=== PATIENT | male | born 1985 | race Caucasian/White ===

== ENCOUNTER 2018-02-12 19:37 | Emergency (ER) | payer SELFPAY ==
[~2018-02-12] VITALS: Ht 175.3 cm; Wt 81.6 kg
--- NOTE | 2018-02-12 21:01 | PHYS DOC ---
Adult General Chief Complaint Chief Complaint: FLANK PAIN HPI HPI 32-year-old male presents with right flank pain. The patient was diagnosed weeks ago with multiple kidney stones. The largest is reportedly 3.2 mm. He passed one stone a week ago. Today the patient has had increasing pain in the right flank and decreased urination. He states that it is difficult to urinate and he has a low below. He is unable to ejaculate. He denies fever or chills. He does have dysuria, but no urinary frequency. Review of Systems Review of Systems Constitutional: Denies fever or chills [] Eyes: Denies change in visual acuity, redness, or eye pain [] HENT: Denies nasal congestion or sore throat [] Respiratory: Denies cough or shortness of breath [] Cardiovascular: No additional information not addressed in HPI [] GI: Right flank pain[] : Denies dysuria or hematuria [] Musculoskeletal: Denies back pain or joint pain [] Integument: Denies rash or skin lesions [] Neurologic: Denies headache, focal weakness or sensory changes [] Endocrine: Denies polyuria or polydipsia [] All other systems were reviewed and found to be within normal limits, except as documented in this note. Physical Exam Physical Exam Constitutional: Well developed, well nourished, no acute distress, non-toxic appearance. [] HENT: Normocephalic, atraumatic, bilateral external ears normal, oropharynx moist, no oral exudates, nose normal. [] Eyes: PERRLA, EOMI, conjunctiva normal, no discharge. [] Neck: Normal range of motion, no tenderness, supple, no stridor. [] Cardiovascular:Heart rate regular rhythm, no murmur [] Lungs & Thorax: Bilateral breath sounds clear to auscultation [] Abdomen: Bowel sounds normal, soft, no tenderness, no masses, no pulsatile masses. [] Skin: Warm, dry, no erythema, no rash. [] Back: Right sided CVA tenderness. [] Extremities: No tenderness, no cyanosis, no clubbing, ROM intact, no edema. [] Neurologic: Alert and oriented X 3, normal motor function, normal sensory function, no focal deficits noted. [] Psychologic: Affect normal, judgement normal, mood normal. [] EKG EKG [] Radiology/Procedures Radiology/Procedures [] Impressions: PQRS Compliance statement: One or more of the following individualized dose reduction techniques were utilized for this examination: 1. Automated exposure control. 2. Adjustment of the mA and/or kV according to patient size. 3. Use of iterative reconstruction technique. Indication:RIGHT FLANK PAIN, PELVIC PAIN, HX KIDNEY STONES
TECHNIQUE: CT abdomen and pelvis without IV contrast with multiplanar reformats. COMPARISON: None FINDINGS: Limited evaluation of solid abdominal and pelvic organs due to lack of IV contrast. Heart is normal in size. No pericardial or pleural effusion. Clear lung bases. Noncontrast appearance of the liver, spleen, gallbladder, pancreas, adrenals within normal limits. 4 mm stone is seen at the right UVJ causing moderate right hydroureteronephrosis. Left kidney demonstrates no hydronephrosis. No free pelvic fluid or ascites. No enlarged retroperitoneal or pelvic adenopathy. No bowel obstruction. Normal appendix. Urinary bladder within normal limits. The prostate and seminal vesicles show no large mass. No suspicious bony lesion. IMPRESSION: Obstructing 4 mm stone in the right UVJ causing mild to moderate right hydroureteronephrosis. Electronically signed by: Elder Malik DO (02/12/2018 9:33 PM) [facility] DICTATED AND SIGNED BY: ELDER MALIK DO DATE: 02/12/182129 CC: REGINE PATTEN DO; PCP,LIDIA Course & Med Decision Making Course & Med Decision Making Pertinent Labs and Imaging studies reviewed. (See chart for details) The patient's CT is significant for an obstructing stone at the right UVJ with hydronephrosis. He is requiring Dilaudid pain medication to keep him comfortable. He is still quite painful when he urinates even a small amount. I discussed the case with the urologist, Dr. Suarez and he agrees the patient can be transferred to [place] for pain management and likely a stone removal procedure tomorrow. Patient is in agreement with this plan. I spoke with the hospitalist, Dr. Wyatt and she has accepted the patient for transfer and admission. [] Dragon Disclaimer Dragon Disclaimer This electronic medical record was generated, in whole or in part, using a voice recognition dictation system. Departure Departure: Referrals: PCP,LIDIA (PCP) REGINE PATTEN DO Feb 12, 2018 21:01
[2018-02-12] MEDS ORDERED: ONDANSETRON PF 4 MG/2 ML VIAL. IV ONE (21:30)
[2018-02-12] MEDS ORDERED: KETOROLAC 30 MG/ML VIAL. IV ONE (21:30)
[2018-02-12] MEDS ORDERED: IV NORMAL SALINE 1,000ML 1,000 ML IV SCH (21:30)
--- NOTE | 2018-02-12 21:36 | RAD ---
PQRS Compliance statement: One or more of the following individualized dose reduction techniques were utilized for this examination: 1. Automated exposure control. 2. Adjustment of the mA and/or kV according to patient size. 3. Use of iterative reconstruction technique. Indication:RIGHT FLANK PAIN, PELVIC PAIN, HX KIDNEY STONES
TECHNIQUE: CT abdomen and pelvis without IV contrast with multiplanar reformats. COMPARISON: None FINDINGS: Limited evaluation of solid abdominal and pelvic organs due to lack of IV contrast. Heart is normal in size. No pericardial or pleural effusion. Clear lung bases. Noncontrast appearance of the liver, spleen, gallbladder, pancreas, adrenals within normal limits. 4 mm stone is seen at the right UVJ causing moderate right hydroureteronephrosis. Left kidney demonstrates no hydronephrosis. No free pelvic fluid or ascites. No enlarged retroperitoneal or pelvic adenopathy. No bowel obstruction. Normal appendix. Urinary bladder within normal limits. The prostate and seminal vesicles show no large mass. No suspicious bony lesion. IMPRESSION: Obstructing 4 mm stone in the right UVJ causing mild to moderate right hydroureteronephrosis. Electronically signed by: Elder Malik DO (02/12/2018 9:33 PM) [facility]
[2018-02-12 21:46] LABS: BASO # 0.1 x10^3/uL (0.0-0.2); BASO % 0 % (0-3); EOS % 0 % (0-3); HEMATOCRIT 44.9 % (39.0-53.0); HEMOGLOBIN 15.5 g/dL (13.0-17.5); LYMPH # 2.2 x10^3/uL (1.0-4.8); LYMPH % 17 % (24-48); MEAN CORPUSCULAR HEMOGLOBIN 29 pg (25-35); MEAN CORPUSCULAR HGB CONC 35 g/dL (31-37); MEAN CORPUSCULAR VOLUME 84 fL (79-100); MONO # 0.8 x10^3/uL (0.0-1.1); MONO % 6 % (0-9); NEUT # 9.7 x10^3uL (1.8-7.7); NEUT % 76 % (31-73); PLATELET COUNT 250 x10^3/uL (140-400); RED BLOOD COUNT 5.35 x10^6/uL (4.30-5.70); RED CELL DISTRIBUTION WIDTH 13.2 % (11.5-14.5); WHITE BLOOD COUNT 12.8 x10^3/uL (4.0-11.0)
[2018-02-12 21:54] LABS: ALBUMIN 4.2 g/dL (3.4-5.0); ALBUMIN/GLOBULIN RATIO 1.3 (1.0-1.7); CALCIUM 9.4 mg/dL (8.5-10.1); CREATININE 1.6 mg/dL (0.7-1.3); GFR 50.3; POTASSIUM 4.1 mmol/L (3.5-5.1); TOTAL BILIRUBIN 0.6 mg/dL (0.2-1.0); TOTAL PROTEIN 7.4 g/dL (6.4-8.2)
[2018-02-12] MEDS ORDERED: HYDROmorphone PF 1 MG/ML DISP.SYRIN IV ONE (22:15)
[2018-02-12 22:26] LABS: BACTERIA,URINE 0 /HPF (0-FEW); BILIRUBIN,URINE NEG (NEG); CLARITY,URINE CLEAR; COLOR,URINE YELLOW; GLUCOSE,URINE NEG (NEG); NITRITE,URINE NEG (NEG); SQUAMOUS EPITHELIAL CELL,UR FEW /LPF; UROBILINOGEN,URINE 0.2 mg/dL (0.2 mg/dL)
[2018-02-12 22:27] LABS: AMORPHOUS SEDIMENT,UR PRESENT /HPF
[2018-02-13] MEDS ORDERED: HYDROmorphone PF 1 MG/ML DISP.SYRIN IV ONE
[2018-02-13 00:49] VITALS: BP 139/82
== END 2018-02-13 01:17 | disposition short-term general hospital (02) ==
LOC: ER 19:37
DX: N13.2 Hydronephrosis with renal and ureteral calculous obstruction (principal)
CPT/HCPCS: 36415; 74176; 80053; 81001; 85025; 87086; 96374; 96375; 96376; 99285; J1170; J1885; J2405; J7030

== ENCOUNTER 2020-03-30 21:46 | Emergency (ER) | payer SELFPAY ==
[~2020-03-30] VITALS: Ht 175.3 cm; Wt 72.7 kg
--- NOTE | 2020-03-30 22:05 | PHYS DOC ---
Past History Past Medical History: Kidney Stones Alcohol Use: None Drug Use: None General Adult HPI: HPI: ".. I am sick like when I got a kidney stone.. but it hurts more up front.... maybe it is not a kidney stone.. I ve been vomiting the last two days..." Patient is a 34 year old male who presents with above hx and complaints nausea, vomiting, and some bilateral flank pain. Patient denies any intake of bad food. No history of trauma. No history of specific ill contacts. No history immunosuppression. Patient does not follow-up with primary care. Patient does have some bilateral flank pain but no localizations with caution. Does have rebound pain and right upper abdomen area. No recent travel outside the [place] area. Review of Systems: Review of Systems: Constitutional: Denies fever or chills Eyes: Denies change in visual acuity HENT: Denies nasal congestion or sore throat Respiratory: Denies cough or shortness of breath Cardiovascular: Denies chest pain or edema GI: Complains of abdominal pain, nausea, vomiting. Denies, bloody stools or diarrhea : Denies dysuria Musculoskeletal: Some complaints of bilateral flank pain Integument: Denies rash Neurologic: Denies headache, focal weakness or sensory changes Endocrine: Denies polyuria or polydipsia Lymphatic: Denies swollen glands Psychiatric: Denies depression or anxiety Family History: Family History: Noncontributory to presentation Current Medications: Current Meds: See nursing for home meds Allergies: Allergies: Allergies Coded Allergies Type Severity Reaction Last Updated Verified No Known Drug Allergies 02/12/18 No Physical Exam: PE: Constitutional: Well developed, well nourished, moderate distress, non-toxic appearance. [] HENT: Normocephalic, atraumatic, bilateral external ears normal, oropharynx dry, no oral exudates, nose normal. [] Eyes: PERRLA, EOMI, conjunctiva normal, no discharge. [] Neck: Normal range of motion, no tenderness, supple, no stridor. [] Cardiovascular: Tachycardia heart rate regular rhythm, no murmur [] Lungs & Thorax: Bilateral breath sounds equal apex on auscultation [] Abdomen: Bowel sounds hyperactive soft, epigastric and right upper quadrant tenderness, no masses, no pulsatile masses. Rebound pain to right upper quadrant. Pt. denies tarry stools. Declines rectal exam. Skin: Warm, dry, no erythema, no rash. [] Back: No tenderness, minimal bilateral CVA tenderness. [] Extremities: No tenderness, no cyanosis, no clubbing, ROM intact, no edema. No psoas sign. Neurologic: Alert and oriented X 3, normal motor function, normal sensory function, no focal deficits noted. [] Psychologic: Affect anxious , judgement normal, mood normal. [] EKG: EKG: [] Radiology/Procedures: Radiology/Procedures: [address] [address] IMAGING REPORT Signed PATIENT: ROGELIO HAMILTON ACCOUNT: [id number] : 1985 LOCATION: ER AGE: 34 SEX: M EXAM STATUS: REG ER ORD. PHYSICIAN: DOROTHY MENDEZ MD REASON: Mid abdomen pain, nausea vomiting Omni 300 75cc PROCEDURE: CT ABD PELV W/ORAL&IV CONTRAST CT ABD PELV W/ORAL IV CONTRAST History: Reason: Mid abdomen pain, nausea vomiting Omni 300 75cc / Spl. Instructions: / History: Technique: After the administration of intravenous contrast, CT imaging was performed of the abdomen and pelvis. Multiplanar images are reviewed. Exposure: One or more of the following individualized dose reduction techniques were utilized for this examination: 1. Automated exposure control 2. Adjustment of the mA and/or kV according to patient size 3. Use of iterative reconstruction technique. Comparison: February 12, 2018 Findings: Lower chest: No consolidation or pleural effusion. Abdomen and pelvis: The liver, spleen, pancreas and gallbladder are unremarkable. Bilateral adenomatous adrenal gland thickening, unchanged. No discrete nodule. Normal appearance of the kidneys. No hydronephrosis. Decompressed urinary bladder. Normal appendix. No evidence of bowel obstruction. Oral contrast opacifies to the level of the colon. No pathologic lymphadenopathy. No ascites. Bones: No pathologic osseous lesions. Impression: 1. No acute abdominal or pelvic pathology. Electronically signed by: Jamie Sheets DO (03/31/2020 12:54 AM) [facility] DICTATED AND SIGNED BY: JAMIE SHEETS DO DATE: 03/31/20 0054 CC: DOROTHY MENDEZ MD; PCP,NO ~MTH0 0 [][address] [address] IMAGING REPORT Signed PATIENT: ROGELIO HAMILTON ACCOUNT: [id number] : 1985 LOCATION: ER AGE: 34 SEX: M EXAM STATUS: REG ER ORD. PHYSICIAN: DOROTHY MENDEZ MD REASON: Mid abdomen pain, nausea and vomiting PROCEDURE: ACUTE ABDOMEN SERIES Exam: Acute abdominal series INDICATION: Mid abdominal pain, nausea and vomiting TECHNIQUE: Frontal view of the chest with upright and supine views of the abdomen Comparisons: None FINDINGS: The cardiomediastinal silhouette and pulmonary vessels are within normal limits. The lung and pleural spaces are clear. There is a focally air-filled dilated loop of small bowel in the left hemiabdomen. No suspicious masses or calcifications. Visualized osseous structures are unremarkable. IMPRESSION: 1. Focally air-filled dilated loops of small bowel in the left hemiabdomen which is nonspecific however could relate to sentinel loop suggesting underlying inflammatory process. Recommend CT for further evaluation. 2. No acute cardiopulmonary process. Electronically signed by: David Kessler MD (03/30/2020 10:46 PM) [facility] DICTATED AND SIGNED BY: DAVID KESSLER MD DATE: 03/30/202245 CC: DOROTHY MENDEZ MD; PCP,NO ~MTH0 0 Heart Score: HEART Score for Chest Pain: HEART Score for Chest Pain Response (Comments) Value History Slighlty/Non-Suspicious 0 ECG Normal 0 Age < 45 0 Risk Factors No Risk Factors 0 Troponin < Normal Limit 0 Total 0 Risk Factors: Risk Factors: DM, Current or recent (<one month) smoker, HTN, HLP, family history of CAD, obesity. Risk Scores: Score 0 - 3: 2.5% MACE over next 6 weeks - Discharge Home Score 4 - 6: 20.3% MACE over next 6 weeks - Admit for Clinical Observation Score 7 - 10: 72.7% MACE over next 6 weeks - Early Invasive Strategies Course & Med Decision Making: Course & Med Decision Making Pertinent Labs and Imaging studies reviewed. (See chart for details) Pt. reports marked improvement after meds and hydration. Patient stay on a clear fluid diet only for the next 48 hours. Take Tylenol and ibuprofen for pain. Marked pain may take Vicoprofen. Take Pepcid 20 mg twice a day. Follow-up primary care. Wear a mask that covers his nose and mouth at all times when outside his home. Take Zofran 8 up 4 x day for active nausea and vomiting. Impression: 1. Nausea and vomiting 2. Abdomen pain 3. Dehydration 4. Hypokalemia- mild 3.3 5. Viral Syndrome. 6. Gastritis [] Dragon Disclaimer: Heena Disclaimer: This electronic medical record was generated, in whole or in part, using a voice recognition dictation system. Departure Departure: Referrals: PCP,NO (PCP) Scripts Hydrocodone/Ibuprofen (HYDROCODONE-IBUPROFEN 7.5-200 ) 1 Each Tablet 1 TAB PO PRN Q6HRS PRN for PAIN, #30 TAB 0 Refills Prov: DOROTHY MENDEZ MD 03/31/20 Famotidine (PEPCID) 20 Mg Tablet 1 TAB PO BID for gastritis, #60 TAB 3 Refills Prov: DOROTHY MENDEZ MD 03/31/20 Ondansetron Hcl (ZOFRAN) 4 Mg Tablet 8 MG PO QIDPRN PRN for NAUSEA/VOMITING, #30 TAB Prov: DOROTHY MENDEZ MD 03/31/20 DOROTHY MENDEZ MD Mar 30, 2020 22:05
[2020-03-30] MEDS: IV RINGERS SOLUTION,LACTATED 1,000 ML IV SCH (22:20)
[2020-03-30] MEDS: KETOROLAC 60 MG/2 ML VIAL. IM ONE (22:20)
[2020-03-30] MEDS: FAMOTIDINE 20 MG/2 ML VIAL IVP ONE (22:20)
[2020-03-30 22:22] LABS: CALCIUM 9.8 mg/dL (8.5-10.1); CREATININE 1.1 mg/dL (0.7-1.3); GFR 76.6; POTASSIUM 3.3 mmol/L (3.5-5.1)
[2020-03-30 22:24] LABS: BASO % 0 % (0-3); EOS % 0 % (0-3); HEMATOCRIT 51.2 % (39.0-53.0); HEMOGLOBIN 17.3 g/dL (13.0-17.5); LYMPH # 2.1 x10^3/uL (1.0-4.8); LYMPH % 17 % (24-48); MEAN CORPUSCULAR HEMOGLOBIN 28 pg (25-35); MEAN CORPUSCULAR HGB CONC 34 g/dL (31-37); MEAN CORPUSCULAR VOLUME 84 fL (79-100); MONO # 0.8 x10^3/uL (0.0-1.1); MONO % 7 % (0-9); NEUT # 9.5 x10^3uL (1.8-7.7); NEUT % 76 % (31-73); PLATELET COUNT 265 x10^3/uL (140-400); RED BLOOD COUNT 6.09 x10^6/uL (4.30-5.70); WHITE BLOOD COUNT 12.4 x10^3/uL (4.0-11.0)
[2020-03-30 22:34] LABS: ALBUMIN 4.8 g/dL (3.4-5.0); DIRECT BILIRUBIN 0.3 mg/dL (0.0-0.2); MAGNESIUM 2.3 mg/dL (1.8-2.4); TOTAL PROTEIN 8.4 g/dL (6.4-8.2)
--- NOTE | 2020-03-30 22:48 | EKG ---
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
--- NOTE | 2020-03-30 22:49 | RAD ---
Exam: Acute abdominal series INDICATION: Mid abdominal pain, nausea and vomiting TECHNIQUE: Frontal view of the chest with upright and supine views of the abdomen Comparisons: None FINDINGS: The cardiomediastinal silhouette and pulmonary vessels are within normal limits. The lung and pleural spaces are clear. There is a focally air-filled dilated loop of small bowel in the left hemiabdomen. No suspicious masses or calcifications. Visualized osseous structures are unremarkable. IMPRESSION: 1. Focally air-filled dilated loops of small bowel in the left hemiabdomen which is nonspecific however could relate to sentinel loop suggesting underlying inflammatory process. Recommend CT for further evaluation. 2. No acute cardiopulmonary process. Electronically signed by: David Patel MD (03/30/2020 10:46 PM) [facility]
[2020-03-31] MEDS: IOHEXOL 240 MG/ML 50ML VIAL. PO ONE (00:24)
[2020-03-31] MEDS: IOHEXOL 300 MG/ML 75 ML VIAL. IV ONE (00:25)
[2020-03-31] MEDS ORDERED: CONTRAST GIVEN. MC PRN (00:30)
--- NOTE | 2020-03-31 00:58 | RAD ---
CT ABD PELV W/ORAL IV CONTRAST History: Reason: Mid abdomen pain, nausea vomiting Omni 300 75cc / Spl. Instructions: / History: Technique: After the administration of intravenous contrast, CT imaging was performed of the abdomen and pelvis. Multiplanar images are reviewed. Exposure: One or more of the following individualized dose reduction techniques were utilized for this examination: 1. Automated exposure control 2. Adjustment of the mA and/or kV according to patient size 3. Use of iterative reconstruction technique. Comparison: February 12, 2018 Findings: Lower chest: No consolidation or pleural effusion. Abdomen and pelvis: The liver, spleen, pancreas and gallbladder are unremarkable. Bilateral adenomatous adrenal gland thickening, unchanged. No discrete nodule. Normal appearance of the kidneys. No hydronephrosis. Decompressed urinary bladder. Normal appendix. No evidence of bowel obstruction. Oral contrast opacifies to the level of the colon. No pathologic lymphadenopathy. No ascites. Bones: No pathologic osseous lesions. Impression: 1. No acute abdominal or pelvic pathology. Electronically signed by: Jamie Sheets DO (03/31/2020 12:54 AM) [facility]
[2020-03-31] MEDS ORDERED: ONDA4TAB7 PO (01:21)
[2020-03-31] MEDS ORDERED: FAMO-63 PO (01:21)
[2020-03-31] MEDS ORDERED: HYDR-1179 PO (01:21)
[2020-03-31 02:10] VITALS: BP 134/96
== END 2020-03-31 02:10 | disposition home or self-care (01) ==
LOC: ER 21:46
DX: K29.70 Gastritis, unspecified, without bleeding (principal); E86.0 Dehydration; E87.6 Hypokalemia; B34.9 Viral infection, unspecified; R11.2 Nausea with vomiting, unspecified
CPT/HCPCS: 36415; 74022; 74177; 80048; 80076; 82550; 83690; 83735; 83880; 84443; 84484; 85025; 85610; 85730; 86705; 86709; 86803; 87340; 93005; 96361; 96372; 96374; 99285; J1885; J3490; J7120; Q9966; Q9967

== ENCOUNTER 2020-03-31 22:09 | Emergency (ER) | payer SELFPAY ==
[~2020-03-31] VITALS: Ht 175.3 cm; Wt 72.7 kg
[~2020-03-31 22:09] MED LIST: FAMO-63 PO; HYDR-1179 PO; ONDA4TAB7 PO
--- NOTE | 2020-03-31 22:16 | PHYS DOC ---
Past History Past Medical History: Kidney Stones Past Surgical History: No Surgical History Alcohol Use: None Drug Use: None General Adult HPI: HPI: ".. I was here last night.. I went home feeling okay.. all day.. but tonight.. I am again more short of breath... Nausea ,... chest discomfort coughing...... I hurt all over.. it hurts to just move... like my whole body hurts.." Patient is a 34 year old male who presents with above hx and complaints of myalgia, arthralgia malaise, nausea, dyspnea, chest pain, non-prodctive cough, nausea, vomiting and subjective fevers. Patient seen yesterday and diagnosed with nausea vomiting dehydration, mild hypokalemia, gastritis and viral syndrome. Patient states felt better all day until tonight. Patient does not do flu vaccination. No recent travel. No specific ill contacts. Patient has not taken meds as previous directed. Has not maintained a clear fluid diet. Review of Systems: Review of Systems: Constitutional: Complains of fever and chills Eyes: Denies change in visual acuity HENT: Denies nasal congestion or sore throat Respiratory: Complains of a nonproductive cough and wheezing Cardiovascular: Complaints of chest discomfort GI: Complains of generalized abdominal pain, nausea, vomiting,. Denies bloody stools or diarrhea : Denies dysuria Musculoskeletal: Complains of generalized arthralgia myalgia Integument: Denies rash Neurologic: Denies headache, focal weakness or sensory changes Endocrine: Denies polyuria or polydipsia Lymphatic: Denies swollen glands Psychiatric: Denies depression or anxiety Family History: Family History: Noncontributory Current Medications: Current Meds: See nursing for home meds Allergies: Allergies: Allergies Coded Allergies Type Severity Reaction Last Updated Verified No Known Drug Allergies 02/12/18 No Physical Exam: PE: Constitutional: Well developed, well nourished,moderate acute distress, non- toxic appearance. [] HENT: Normocephalic, atraumatic, bilateral external ears normal, oropharynx dr y, no oral exudates, nose normal. [] Eyes: PERRLA, EOMI, conjunctiva normal, no discharge. [] Neck: Normal range of motion, no tenderness, supple, no stridor. [] Cardiovascular:Heart rate regular rhythm, no murmur [] Lungs & Thorax: Bilateral breath sounds equal apex few scattered wheezes auscultation [] Abdomen: Bowel sounds hyperactive, soft, no tenderness, no masses, no pulsatile masses. [] Skin: Warm, dry, no erythema, no rash. [] Back: No tenderness, no CVA tenderness. [] Extremities: No tenderness, no cyanosis, no clubbing, ROM intact, no edema. No cording appreciated Neurologic: Alert and oriented X 3, normal motor function, normal sensory function, no focal deficits noted. [] Psychologic: Affect anxious, judgement normal, mood normal. [] EKG: EKG: My interpretation EKG shows a sinus rhythm at 82 bpm no findings acute STEMI of contralateral changes [] Radiology/Procedures: Radiology/Procedures: No acute interval change from yesterday. No large infiltrates. Pleural spaces are clear no free air under the diaphragm. [] Heart Score: HEART Score for Chest Pain: HEART Score for Chest Pain Response (Comments) Value History Slighlty/Non-Suspicious 0 ECG Normal 0 Age < 45 0 Risk Factors No Risk Factors 0 Troponin < Normal Limit 0 Total 0 Risk Factors: Risk Factors: DM, Current or recent (<one month) smoker, HTN, HLP, family history of CAD, obesity. Risk Scores: Score 0 - 3: 2.5% MACE over next 6 weeks - Discharge Home Score 4 - 6: 20.3% MACE over next 6 weeks - Admit for Clinical Observation Score 7 - 10: 72.7% MACE over next 6 weeks - Early Invasive Strategies Course & Med Decision Making: Course & Med Decision Making Pertinent Labs and Imaging studies reviewed. (See chart for details) Patient does have a clear fluid diet only next 48 hours. Take Tylenol and ibuprofen for discomfort. For marked pain may take Vicoprofen as previous directed. Patient take Pepcid twice a day. Patient follow-up primary care. Patient to self isolate. Patient wear a mask that covers nose and mouth at all times when outside the home. Patient may take Zofran 8 mg up to 4 times a day for nausea and vomiting. Must push fluids. Must push clear fruit juices. Impression: 1. Nausea and vomiting 2. Abdomen pain 3. Dehydration 4. Hypokalemia=2.9 5. Mild leukocytosis 6. Viral syndrome 7. Gastritis [] Dragon Disclaimer: Dragon Disclaimer: This electronic medical record was generated, in whole or in part, using a voice recognition dictation system. Departure Departure: Referrals: PCP,NO (PCP) Heena Disclaimer This chart was dictated in whole or in part using Voice Recognition software in a busy, high-work load, and often noisy Emergency Department environment. It may contain unintended and wholly unrecognized errors or omissions. Dragon Disclaimer This chart was dictated in whole or in part using Voice Recognition software in a busy, high-work load, and often noisy Emergency Department environment. It may contain unintended and wholly unrecognized errors or omissions. DOROTHY MENDEZ MD Mar 31, 2020 22:16
[2020-03-31] MEDS: ASPIRIN CHEWABLE 81 MG TABLET. PO ONE (23:39)
[2020-03-31] MEDS: FAMOTIDINE 20 MG/2 ML VIAL IVP ONE (23:39)
[2020-03-31] MEDS: IV RINGERS SOLUTION,LACTATED 1,000 ML IV SCH (23:39)
[2020-03-31] MEDS: KETOROLAC 30 MG/ML VIAL. IVP ONE (23:39)
[2020-03-31 23:58] LABS: BASO % 0 % (0-3); EOS % 0 % (0-3); HEMATOCRIT 47.5 % (39.0-53.0); HEMOGLOBIN 16.1 g/dL (13.0-17.5); LYMPH # 2.2 x10^3/uL (1.0-4.8); LYMPH % 18 % (24-48); MEAN CORPUSCULAR HEMOGLOBIN 29 pg (25-35); MEAN CORPUSCULAR HGB CONC 34 g/dL (31-37); MEAN CORPUSCULAR VOLUME 84 fL (79-100); MONO # 0.7 x10^3/uL (0.0-1.1); MONO % 6 % (0-9); NEUT # 9.3 x10^3uL (1.8-7.7); NEUT % 76 % (31-73); PLATELET COUNT 224 x10^3/uL (140-400); RED BLOOD COUNT 5.64 x10^6/uL (4.30-5.70); RED CELL DISTRIBUTION WIDTH 12.8 % (11.5-14.5); WHITE BLOOD COUNT 12.2 x10^3/uL (4.0-11.0)
[2020-04-01 00:18] LABS: CALCIUM 9.2 mg/dL (8.5-10.1); CREATININE 1.3 mg/dL (0.7-1.3); DIRECT BILIRUBIN 0.2 mg/dL (0.0-0.2); GFR 63.2; MAGNESIUM 2.1 mg/dL (1.8-2.4); TOTAL BILIRUBIN 0.8 mg/dL (0.2-1.0); TOTAL PROTEIN 7.2 g/dL (6.4-8.2)
[2020-04-01 00:24] LABS: POTASSIUM 2.9 mmol/L (3.5-5.1)
[2020-04-01 01:54] LABS: INFLUENZA A PATIENT NEGATIVE (NEGATIVE); INFLUENZA B PATIENT NEGATIVE (NEGATIVE)
--- NOTE | 2020-04-01 02:01 | EKG ---
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
[2020-04-01] MEDS: POTASSIUM CHLORIDE 20 MEQ TABLET.ER. PO ONE (03:01)
[2020-04-01 04:32] VITALS: BP 133/71
--- NOTE | 2020-04-01 16:20 | RAD ---
XR CHEST 1V History: Reason: cp / Spl. Instructions: / History: Comparison: None. Findings: No consolidation or pleural effusion. Normal heart size. No pneumothorax. Impression: 1. No acute cardiopulmonary process. Electronically signed by: Jamie Sheets DO (04/01/2020 12:29 AM) [facility] [place]
== END 2020-04-01 04:35 | disposition home or self-care (01) ==
LOC: ER 22:09
DX: E86.0 Dehydration (principal); E87.6 Hypokalemia; D72.829 Elevated white blood cell count, unspecified; B34.9 Viral infection, unspecified; K29.70 Gastritis, unspecified, without bleeding; M79.10 Myalgia, unspecified site; Z87.442 Personal history of urinary calculi
CPT/HCPCS: 36415; 71045; 80048; 80076; 82150; 82550; 83690; 83735; 83880; 84443; 84484; 85025; 85379; 85610; 85730; 87070; 87804; 87880; 93005; 96361; 96374; 96375; 99285; J1885; J3490; J7120

== ENCOUNTER 2021-03-04 15:44 | Emergency (ER) | payer SELFPAY ==
[~2021-03-04] VITALS: Ht 175.3 cm; Wt 72.3 kg
[2021-03-04] MEDS ORDERED: ONDANSETRON PF 4 MG/2 ML VIAL. IVP ONE (16:15)
[2021-03-04] MEDS ORDERED: IV NORMAL SALINE 1,000ML 1,000 ML IV ONE ×2 (16:15→17:30)
[2021-03-04] MEDS ORDERED: LIDO:MAALOX 1:1 20 ML SINGLE DOSE. PO ONE (16:15)
[2021-03-04] MEDS ORDERED: MORPHINE SULFATE 2 MG/ML DISP.SYRIN. IV ONE (16:15)
--- NOTE | 2021-03-04 16:19 | PHYS DOC ---
Past History Past Medical History: Kidney Stones Past Surgical History: No Surgical History Alcohol Use: None Drug Use: None Adult General Chief Complaint Chief Complaint: ABDOMINAL PAIN HPI HPI Patient is a 35-year-old male presenting via POV for multiple issues. Reports he has no medical history and takes no medications on a daily basis. States that 48 hours ago he passed a kidney stone for which he has history of doing so in the past. States ever since then he has been nauseous and suffering from epigastric pain. Ice chips makes better, all other p.o. intake makes worse and is exacerbated his nausea with a total of x6 episodes of emesis. He was worried because today he developed blood-tinged emesis prompting him to come in for evaluation. As mentioned, he has no diagnosed medical conditions besides prior history of kidney stones, he has no history of intra-abdominal abnormalities or surgeries, he admits he is not vaccinated against COVID-19. Denies alcohol and tobacco use, admits to marijuana use and distant history of illicit drug use. He has no history of any GI bleed, has never been scoped in the past Review of Systems Review of Systems Fourteen body systems of review of systems have been reviewed. See HPI for pertinent positives and negative responses, other loomis all other systems are ne gative, non-pertinent or non-contributory Allergies Allergies Allergies Coded Allergies Type Severity Reaction Last Updated Verified peanut Allergy Unknown 03/04/21 Yes Physical Exam Physical Exam Constitutional: Well developed, well nourished, no acute distress, non-toxic appearance. HENT: Normocephalic, atraumatic, bilateral external ears normal, oropharynx moist, no oral exudates, nose normal. Eyes: PERRLA, EOMI, conjunctiva normal, no discharge. Neck: Normal range of motion, no tenderness, supple, no stridor. Cardiovascular: Heart rate regular, sinus rhythm, no murmurs rubs or gallops Lungs & Thorax: Bilateral breath sounds clear to auscultation Abdomen: Bowel sounds normal, soft, epigastric tenderness with palpation without guarding or rebound, no masses, no pulsatile masses. Nonsurgical abdomen, no peritoneal signs Skin: Warm, dry, no erythema, no rash. Back: No tenderness, no CVA tenderness. Extremities: No tenderness, no cyanosis, no clubbing, ROM intact, no edema. Neurologic: Alert and oriented X 3, grossly normal motor & sensory function, no focal deficits noted. Psychologic: Affect normal, judgement normal, mood normal. Current Patient Data Vital Signs Vital Signs Date Time Temp Pulse Resp B/P (MAP) Pulse Ox O2 Delivery O2 Flow Rate FiO2 03/04/21 15:50 98.0 71 24 154/97 (116) 97 Lab Results Laboratory Tests Test 03/04/21 16:10 White Blood Count 11.6 x10^3/uL Red Blood Count 6.14 x10^6/uL Hemoglobin 17.7 g/dL Hematocrit 51.8 % Mean Corpuscular Volume 84 fL Mean Corpuscular Hemoglobin 29 pg Mean Corpuscular Hemoglobin Concent 34 g/dL Red Cell Distribution Width 12.7 % Platelet Count 241 x10^3/uL Neutrophils (%) (Auto) 69 % Lymphocytes (%) (Auto) 24 % Monocytes (%) (Auto) 7 % Eosinophils (%) (Auto) 0 % Basophils (%) (Auto) 0 % Neutrophils # (Auto) 8.0 x10^3uL Lymphocytes # (Auto) 2.8 x10^3/uL Monocytes # (Auto) 0.8 x10^3/uL Eosinophils # (Auto) 0.0 x10^3/uL Basophils # (Auto) 0.0 x10^3/uL Sodium Level 136 mmol/L Potassium Level 3.6 mmol/L Chloride Level 97 mmol/L Carbon Dioxide Level 25 mmol/L Anion Gap 14 Blood Urea Nitrogen 19 mg/dL Creatinine 1.0 mg/dL Estimated GFR (Cockcroft-Gault) 85.0 BUN/Creatinine Ratio 19 Glucose Level 104 mg/dL Calcium Level 10.4 mg/dL Total Bilirubin 1.1 mg/dL Aspartate Amino Transf (AST/SGOT) 11 U/L Alanine Aminotransferase (ALT/SGPT) 22 U/L Alkaline Phosphatase 68 U/L Troponin I High Sensitivity 9 ng/L Total Protein 7.7 g/dL Albumin 4.6 g/dL Albumin/Globulin Ratio 1.5 Lipase 68 U/L Current Medications Medications (Trade) Dose Ordered Sig/Sasha Route PRN Reason Start Time Stop Time Status Last Admin Dose Admin Sodium Chloride 1,000 ml @ 1,000 mls/hr 1X ONCE IV 03/04/21 16:15 03/04/21 17:14 DC 03/04/21 16:38 Ondansetron HCl (Zofran) 4 mg 1X ONCE IVP 03/04/21 16:15 03/04/21 16:33 DC 03/04/21 16:40 Morphine Sulfate (Morphine 2mg Syringe) 2 mg 1X ONCE IV 03/04/21 16:15 03/04/21 16:33 DC 03/04/21 16:42 Multi-Ingredient Mouthwash/Gargle (Gi Cocktail) 20 ml 1X ONCE PO 03/04/21 16:15 03/04/21 16:33 DC 03/04/21 16:44 Morphine Sulfate (Morphine 4mg Syringe) 4 mg 1X ONCE IV 03/04/21 17:30 03/04/21 17:31 DC 03/04/21 17:34 Sodium Chloride 1,000 ml @ 1,000 mls/hr 1X ONCE IV 03/04/21 17:30 03/04/21 18:29 03/04/21 17:34 EKG EKG EKG ordered and interpreted by myself at 1635 hrs. is sinus rhythm at 70 bpm, unremarkable intervals, no axis deviation, no ischemic findings, no STEMI Radiology/Procedures Radiology/Procedures Exam: Chest one view INDICATION: Epigastric pain TECHNIQUE: Frontal view of the chest Comparisons: 03/31/2020 FINDINGS: The cardiomediastinal silhouette and pulmonary vessels are within normal limits. The lung and pleural spaces are clear. IMPRESSION: No acute cardiopulmonary process. Electronically signed by: David Patel MD (03/04/2021 5:31 PM) [facility] Heart Score C/O Chest Pain: No HEART Score for Chest Pain: HEART Score for Chest Pain Response (Comments) Value History Slighlty/Non-Suspicious 0 ECG Normal 0 Age < 45 0 Risk Factors No Risk Factors 0 Troponin < Normal Limit 0 Total 0 Risk Factors: Risk Factors: DM, Current or recent (<one month) smoker, HTN, HLP, family history of CAD, obesity. Risk Scores: Risk Factors: DM, Current or recent (<one month) smoker, HTN, HLP, family history of CAD, obesity. Course & Med Decision Making Course & Med Decision Making ABCs unremarkable HPI physical exam and comprehensive ER work-up nonconcerning for any emergent or surgical issues Patient symptoms completely improved with administered IV fluids, GI cocktail, antiemetic and pain medication I disclosed entirety of ER findings that again were nonconcerning. Patient suffering blood-tinged hemoptysis on most recent bout of emesis, no recurrence. No indication for emergent transfer for endoscopy or other measures in an otherwise hemodynamically stable patient Patient suffering from nonspecific GI symptoms. He is unvaccinated for COVID-19 and so decision was made to test for this today with PCR Covid pending. Appropriate quarantine precautions given, discussed importance of continued supportive care practices at home New prescription for Pepcid and Zofran given. Patient has good access to PCP, advised him to contact them first thing Saturday to review ER visit today and need for close ER follow-up when safe to do so. Strict return precautions discussed and understood prior to ER departure Dragon Disclaimer Dragon Disclaimer This electronic medical record was generated, in whole or in part, using a voice recognition dictation system. Departure Departure: Impression: Primary Impression: Abdominal pain Additional Impressions: Nausea & vomiting Person under investigation for COVID-19 Disposition: HOME / SELF CARE / HOMELESS Condition: IMPROVED Referrals: PCP,LIDIA (PCP) Additional Instructions: You were seen for nausea and vomiting. You most likely have a viral illness which should resolve in the next few days to a week. Your vital signs, physical exam and comprehensive ER work-up were nonconcerning for any emergent or surgical issues. We tested you for COVID-19 but this test does not come back for 1 to 2 days. In the meantime you need to quarantine yourself at home away fr om all other individuals, especially those who are elderly or have any other chronic health issues or an immunocompromised status. You should return to the ED if you develop worsening abdominal pain, fever > 100.3, black/bloody stools, black/bloody vomiting, cannot keep water down, or any other new or concerning symptoms.. Alternate Tylenol and ibuprofen as needed for body aches and pain. If your test does come back positive you need to quarantine yourself for 10 days until symptom-free. You should make sure to drink plenty of fluids and get plenty of rest. Scripts Famotidine (PEPCID) 20 Mg Tablet 1 TAB PO BID for EPIGASTRIC PAIN, #60 TAB 0 Refills Prov: BARRINGTON CULLEN DO 03/04/21 Ondansetron (ONDANSETRON ODT) 4 Mg Tab.rapdis 1 TAB PO PRN Q6-8HRS for NAUSEA, #16 TAB Prov: BARRINGTON CULLEN DO 03/04/21 Problem Qualifiers BARRINGTON CULLEN DO Mar 04, 2021 16:19
--- NOTE | 2021-03-04 16:32 | EKG ---
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
[2021-03-04 16:34] LABS: BASO % 0 % (0-3); EOS % 0 % (0-3); HEMATOCRIT 51.8 % (39.0-53.0); HEMOGLOBIN 17.7 g/dL (13.0-17.5); LYMPH # 2.8 x10^3/uL (1.0-4.8); LYMPH % 24 % (24-48); MEAN CORPUSCULAR HEMOGLOBIN 29 pg (25-35); MEAN CORPUSCULAR HGB CONC 34 g/dL (31-37); MEAN CORPUSCULAR VOLUME 84 fL (79-100); MONO # 0.8 x10^3/uL (0.0-1.1); MONO % 7 % (0-9); NEUT % 69 % (31-73); PLATELET COUNT 241 x10^3/uL (140-400); RED BLOOD COUNT 6.14 x10^6/uL (4.30-5.70); RED CELL DISTRIBUTION WIDTH 12.7 % (11.5-14.5); WHITE BLOOD COUNT 11.6 x10^3/uL (4.0-11.0)
[2021-03-04 16:39] LABS: CALCIUM 10.4 mg/dL (8.5-10.1); POTASSIUM 3.6 mmol/L (3.5-5.1)
[2021-03-04 16:46] LABS: ALBUMIN 4.6 g/dL (3.4-5.0); ALBUMIN/GLOBULIN RATIO 1.5 (1.0-1.7); TOTAL BILIRUBIN 1.1 mg/dL (0.2-1.0); TOTAL PROTEIN 7.7 g/dL (6.4-8.2)
[2021-03-04] MEDS ORDERED: MORPHINE SULFATE 4 MG/ML DISP.SYRIN. IV ONE (17:30)
--- NOTE | 2021-03-04 17:34 | RAD ---
Exam: Chest one view INDICATION: Epigastric pain TECHNIQUE: Frontal view of the chest Comparisons: 03/31/2020 FINDINGS: The cardiomediastinal silhouette and pulmonary vessels are within normal limits. The lung and pleural spaces are clear. IMPRESSION: No acute cardiopulmonary process. Electronically signed by: David Patel MD (03/04/2021 5:31 PM) R[facility]ER
[2021-03-04] MEDS ORDERED: FAMO-63 PO (17:48)
[2021-03-04] MEDS ORDERED: ONDA4TAB12 PO (17:48)
[2021-03-04 18:20] VITALS: BP 131/74
[2021-03-04 18:55] LABS: AMPHETAMINE/METHAMPHETAMINE NEG (NEG); BARBITURATES NEG (NEG); BENZODIAZEPINES NEG (NEG); CANNABINOIDS POS (NEG); COCAINE NEG (NEG); METHADONE NEG (NEG); OPIATES POS (NEG); PHENCYCLIDINE NEG (NEG)
[2021-03-04 19:04] LABS: COLOR,URINE YELLOW
[2021-03-04 19:05] LABS: BACTERIA,URINE FEW /HPF (0-FEW); BILIRUBIN,URINE NEG (NEG); CLARITY,URINE HAZY; GLUCOSE,URINE NEG (NEG); NITRITE,URINE POS (NEG); SQUAMOUS EPITHELIAL CELL,UR OCC /LPF
== END 2021-03-04 18:50 | disposition home or self-care (01) ==
LOC: ER 15:44
DX: R10.13 Epigastric pain (principal); R11.2 Nausea with vomiting, unspecified; Z20.822 Contact with and (suspected) exposure to COVID-19; Z87.442 Personal history of urinary calculi; Z91.010 Allergy to peanuts
CPT/HCPCS: 36415; 71045; 80053; 80307; 81001; 83690; 84484; 85025; 87086; 93005; 96361; 96374; 96375; 96376; 99285; C9803; J2270; J2405; J7030; U0003

== ENCOUNTER 2021-08-28 09:37 | Emergency (ER) | payer SELFPAY ==
[~2021-08-28] VITALS: Ht 175.3 cm; Wt 74.5 kg
[~2021-08-28 09:37] MED LIST changes: +ONDA4TAB12 PO
[2021-08-28] MEDS ORDERED: ASPIRIN CHEWABLE 81 MG TABLET. PO ONE (10:15)
[2021-08-28] MEDS ORDERED: IV NORMAL SALINE 1,000ML 1,000 ML IV SCH (10:15)
[2021-08-28] MEDS ORDERED: MORPHINE SULFATE 2 MG/ML DISP.SYRIN. IV ONE ×2 (10:15→11:30)
--- NOTE | 2021-08-28 10:26 | RAD ---
EXAM: Chest, single view. HISTORY: Chest pain. COMPARISON: 03/04/2021 FINDINGS: A frontal view of the chest is obtained. There is no infiltrate, pleural effusion or pneumo thorax. The heart is normal in size. IMPRESSION: No acute pulmonary finding. Electronically signed by: Barbara Ochoa MD (08/28/2021 10:24 AM) [id number]
[2021-08-28] MEDS ORDERED: ONDANSETRON PF 4 MG/2 ML VIAL. IVP ONE (10:30)
[2021-08-28] MEDS ORDERED: LIDO:MAALOX 1:1 20 ML SINGLE DOSE. PO ONE (10:30)
[2021-08-28 10:33] LABS: BASO % 1 % (0-3); EOS # 0.1 x10^3/uL (0.0-0.7); EOS % 1 % (0-3); HEMATOCRIT 45.4 % (39.0-53.0); HEMOGLOBIN 15.3 g/dL (13.0-17.5); LYMPH # 2.5 x10^3/uL (1.0-4.8); LYMPH % 27 % (24-48); MEAN CORPUSCULAR HEMOGLOBIN 29 pg (25-35); MEAN CORPUSCULAR HGB CONC 34 g/dL (31-37); MEAN CORPUSCULAR VOLUME 87 fL (79-100); MONO # 0.4 x10^3/uL (0.0-1.1); MONO % 4 % (0-9); NEUT # 6.4 x10^3uL (1.8-7.7); NEUT % 68 % (31-73); PLATELET COUNT 233 x10^3/uL (140-400); RED BLOOD COUNT 5.25 x10^6/uL (4.30-5.70); RED CELL DISTRIBUTION WIDTH 12.9 % (11.5-14.5); WHITE BLOOD COUNT 9.4 x10^3/uL (4.0-11.0)
--- NOTE | 2021-08-28 10:34 | PHYS DOC ---
Past History Past Medical History: Kidney Stones Past Surgical History: Other Additional Past Surgical Histo: hernia repair. Alcohol Use: Rarely Drug Use: None General Adult EDM: Chief Complaint: CHEST PAIN HPI: HPI: Patient is a 35-year-old male who presents to the emergency department for epigastric chest pain that started 4 days ago. He describes the chest pain is intermittent and is associated with nausea and shortness of breath. He rates his pain 7 out of 10. He denies any alleviating or aggravating factors. No treatment prior to arrival. Patient describes the pain as a "punch" and a cramp. Patient denies any dizziness, vomiting. He has no medical history but is a current smoker. Review of Systems: Review of Systems: Respiratory: See HPI Cardiovascular: See HPI GI: See HPI Current Medications: Current Meds: Current Medications Medications (Trade) Dose Ordered Sig/Sasha Start Time Stop Time Status Last Admin Dose Admin Aspirin (Aspirin Chewable) 324 mg 1X ONCE 08/28/21 10:15 08/28/21 10:30 DC Morphine Sulfate (Morphine 2mg Syringe) 2 mg 1X ONCE 08/28/21 10:15 08/28/21 10:30 DC Multi-Ingredient Mouthwash/Gargle (Gi Cocktail) 20 ml 1X ONCE 08/28/21 10:30 08/28/21 10:31 Ondansetron HCl (Zofran) 4 mg 1X ONCE 08/28/21 10:30 08/28/21 10:31 Sodium Chloride 1,000 ml @ 1,000 mls/hr Q1H 08/28/21 10:15 08/28/21 11:14 Allergies: Allergies: Allergies Coded Allergies Type Severity Reaction Last Updated Verified peanut Allergy Unknown 03/04/21 Yes Physical Exam: PE: Constitutional: Well developed, well nourished, no acute distress, non-toxic appearance. [] HENT: Normocephalic, atraumatic, bilateral external ears normal, oropharynx moist, no oral exudates, nose normal. [] Eyes: PERRL, EOMI, conjunctiva normal, no discharge. [] Neck: Normal range of motion, no tenderness, supple, no stridor. [] Cardiovascular:Heart rate regular rhythm, no murmur [] Lungs & Thorax: Bilateral breath sounds clear to auscultation [] Abdomen: Bowel sounds normal, soft, no tenderness, no masses, no pulsatile masses. [] Skin: Warm, dry, no erythema, no rash. [] Back: No tenderness, normal range of motion Extremities: No tenderness, no cyanosis, no clubbing, ROM intact, no edema. [] Neurologic: Alert and oriented X 3, normal motor function, normal sensory function, no focal deficits noted. [] Psychologic: Affect normal, judgement normal, mood normal. [] Current Patient Data: Labs: Laboratory Tests Test 08/28/21 10:01 White Blood Count 9.4 x10^3/uL Red Blood Count 5.25 x10^6/uL Hemoglobin 15.3 g/dL Hematocrit 45.4 % Mean Corpuscular Volume 87 fL Mean Corpuscular Hemoglobin 29 pg Mean Corpuscular Hemoglobin Concent 34 g/dL Red Cell Distribution Width 12.9 % Platelet Count 233 x10^3/uL Neutrophils (%) (Auto) 68 % Lymphocytes (%) (Auto) 27 % Monocytes (%) (Auto) 4 % Eosinophils (%) (Auto) 1 % Basophils (%) (Auto) 1 % Neutrophils # (Auto) 6.4 x10^3uL Lymphocytes # (Auto) 2.5 x10^3/uL Monocytes # (Auto) 0.4 x10^3/uL Eosinophils # (Auto) 0.1 x10^3/uL Basophils # (Auto) 0.0 x10^3/uL D-Dimer (Davida) < 0.19 mg/L Sodium Level 140 mmol/L Potassium Level 4.2 mmol/L Chloride Level 104 mmol/L Carbon Dioxide Level 26 mmol/L Anion Gap 10 Blood Urea Nitrogen 18 mg/dL Creatinine 1.0 mg/dL Estimated GFR (Cockcroft-Gault) 85.0 BUN/Creatinine Ratio 18 Glucose Level 114 mg/dL Calcium Level 9.4 mg/dL Total Bilirubin 0.3 mg/dL Aspartate Amino Transf (AST/SGOT) 14 U/L Alanine Aminotransferase (ALT/SGPT) 28 U/L Alkaline Phosphatase 80 U/L Troponin I High Sensitivity 8 ng/L Total Protein 6.3 g/dL Albumin 3.6 g/dL Albumin/Globulin Ratio 1.3 Current Medications Medications (Trade) Dose Ordered Sig/Sasha Route PRN Reason Start Time Stop Time Status Last Admin Dose Admin Aspirin (Aspirin Chewable) 324 mg 1X ONCE PO 08/28/21 10:15 08/28/21 10:30 DC 08/28/21 10:50 Morphine Sulfate (Morphine 2mg Syringe) 2 mg 1X ONCE IV 08/28/21 10:15 08/28/21 10:30 DC 08/28/21 10:55 Sodium Chloride 1,000 ml @ 1,000 mls/hr Q1H IV 08/28/21 10:15 08/28/21 11:14 08/28/21 10:49 Ondansetron HCl (Zofran) 4 mg 1X ONCE IVP 08/28/21 10:30 08/28/21 10:31 DC 08/28/21 10:53 Multi-Ingredient Mouthwash/Gargle (Gi Cocktail) 20 ml 1X ONCE PO 08/28/21 10:30 08/28/21 10:31 DC 08/28/21 10:51 Vital Signs: Vital Signs Date Time Temp Pulse Resp B/P (MAP) Pulse Ox O2 Delivery O2 Flow Rate FiO2 08/28/21 09:40 98.1 68 18 147/81 (103) 97 EKG: EKG: EKG performed by ER staff at 943 shows sinus rhythm with rate of 68, QTc is 398, no STEMI read by Dr. Osborne at 0 948 Radiology/Procedures: Radiology/Procedures: []REASON: chest pain PROCEDURE: PORTABLE CHEST 1V EXAM: Chest, single view. HISTORY: Chest pain. COMPARISON: 03/04/2021 FINDINGS: A frontal view of the chest is obtained. There is no infiltrate, pleural effusion or pneumothorax. The heart is normal in size. IMPRESSION: No acute pulmonary finding. Electronically signed by: Barbara Callejas MD (08/28/2021 10:24 AM) [id number] DICTATED AND SIGNED BY: BARBARA CALLEJAS MD DATE: 08/28/21 1023 CC: LISBETH FAIRCHILD APRN; PCP,NO ~ REASON: upper abdominal pain PROCEDURE: CT ABDOMEN PELVIS WO CONTRAST EXAM: Abdomen and pelvis CT without intravenous contrast. HISTORY: Pain. TECHNIQUE: Computed tomographic images of the abdomen and pelvis were obtained without contrast. Multiplanar reformatting was performed. *One or more of the following individualized dose reduction techniques were utilized for this examination: 1. Automated exposure control. 2. Adjustment of the mA and/or kV according to patient size. 3. Use of iterative reconstruction technique. COMPARISON: 03/30/2020. FINDINGS: Evaluation of the lower thorax demonstrates minimal posterior dependent and basilar atelectasis. The heart is normal in size. No hepatic lesion is seen. The gallbladder, pancreas, spleen and right adrenal gland are unremarkable. There is mild left adrenal gland thickening without a discrete nodule. There is no hydronephrosis or nephrolithiasis. There is no appendicitis. There is no bowel obstruction. The urinary bladder is unremarkable. There are a few small prostate calcifications. The aorta is normal in caliber. There is no lymphadenopathy. There is a tiny fat-containing right inguinal hernia. There is no acute or suspicious osseous finding. IMPRESSION: No acute abdominal or pelvic finding. Electronically signed by: Barbara Callejas MD (08/28/2021 12:09 PM) [id number] DICTATED AND SIGNED BY: BARBARA CALLEJAS MD DATE: 08/28/21 1202 CC: LISBETH FAIRCHILD APRN; PCP,NO ~ Heart Score: C/O Chest Pain: Yes HEART Score for Chest Pain: HEART Score for Chest Pain Response (Comments) Value History Slighlty/Non-Suspicious 0 ECG Normal 0 Age < 45 0 Risk Factors 1 or 2 Risk Factors 1 Troponin < Normal Limit 0 Total 1 Risk Factors: Risk Factors: DM, Current or recent (<one month) smoker, HTN, HLP, family history of CAD, obesity. Risk Scores: Score 0 - 3: 2.5% MACE over next 6 weeks - Discharge Home Score 4 - 6: 20.3% MACE over next 6 weeks - Admit for Clinical Observation Score 7 - 10: 72.7% MACE over next 6 weeks - Early Invasive Strategies Course & Med Decision Making: Course & Med Decision Making Pertinent Labs and Imaging studies reviewed. (See chart for details) [] Patient presents to the emergency department for intermittent chest pain with nausea and shortness of breath x4 days. Patient's risk factors cigarette smoking. Work-up in the ER consisted of blood work including troponin and D- dimer, EKG and chest x-ray. Patient will be treated with IV fluids, nausea, GI cocktail and pain medication. Patient's blood work is unremarkable, he had a negative troponin and his D-dimer was not elevated. Chest x-ray shows no acute findings. As patient's chest pain started 4 days ago, no need for delta troponins. Patient's heart score is 1. Upon reevaluation, patient continues to have epigastric pain. CT imaging of his abdomen and pelvis was performed. CT abdomen and pelvis did not show any acute findings. Patient was given a second dose of pain medication. Patient is advised to follow-up with his primary care provider and he was given cardiology referral information. Patient requested work note stating what he was in the ER for. Patient's vital signs are stable. I discussed with patient all findings and diagnostic testing as well as the need to follow-up with PCP for further evaluation and treatment or return to the ER if any new or worsening symptoms. Strict return precautions were also discussed at length. Patient voiced understanding and agreement with the plan. Patient is hemodynamically stable at the time of disposition. Dragon Disclaimer: Dragvictor manuel Disclaimer: This electronic medical record was generated, in whole or in part, using a voice recognition dictation system. Departure Departure: Impression: Primary Impression: Atypical chest pain Disposition: LEFT AWOL/ELOPED Condition: GOOD Referrals: PCP,LIDIA (PCP) JOYCE ASHLEY MD Patient Instructions: Chest Pain (Nonspecific) Additional Instructions: You were seen in the emergency department today for epigastric pain. Your blood work and CT imaging of your abdomen/pelvis and chest x-ray were unremarkable. As we discussed, at this time it does not appear that you are experiencing acute coronary syndrome. You can take Tylenol and ibuprofen at home for your pain. You are being discharged home with nausea medication that you can take as needed. Please follow-up with your primary care provider tomorrow regarding your ER visit. If you do not have a primary care provider, you can follow-up with 1 is attached to this discharge paperwork. I would advise you to follow-up with a mail truck driver in 1 was attached for referral. Please contact his mail truck driver tomorrow to set up a follow-up appointment. You may need additional cardiology work-up like an echocardiogram. If you go home and your pain resumes or gets worse or you develop shortness of breath, nausea, vomiting, dizziness, palpitations or any new or worsening concerns please return to the emergency department immediately for reevaluation. Scripts Ondansetron (ONDANSETRON ODT) 4 Mg Tab.rapdis 1 TAB PO PRN Q6-8HRS for NAUSEA for 5 Days, #20 TAB 0 Refills Prov: LISBETH FAIRCHILD APRN 08/28/21 LISBETH FAIRCHILD APRN August 28, 2021 10:34
[2021-08-28 10:35] LABS: CALCIUM 9.4 mg/dL (8.5-10.1); POTASSIUM 4.2 mmol/L (3.5-5.1)
[2021-08-28 10:41] LABS: ALBUMIN 3.6 g/dL (3.4-5.0); ALBUMIN/GLOBULIN RATIO 1.3 (1.0-1.7); TOTAL BILIRUBIN 0.3 mg/dL (0.2-1.0); TOTAL PROTEIN 6.3 g/dL (6.4-8.2)
[2021-08-28] MEDS ORDERED: CONTRAST GIVEN. MC PRN (11:30)
[2021-08-28] MEDS ORDERED: IOHEXOL 300 MG/ML 75 ML VIAL. IV ONE (11:30)
[2021-08-28 12:10] VITALS: BP 131/80
--- NOTE | 2021-08-28 12:11 | RAD ---
EXAM: Abdomen and pelvis CT without intravenous contrast. HISTORY: Pain. TECHNIQUE: Computed tomographic images of the abdomen and pelvis were obtained without contrast. Mult iplanar reformatting was performed. *One or more of the following individualized dose reduction techniques were utilized for this examina tion: 1. Automated exposure control. 2. Adjustment of the mA and/or kV according to patient size. 3. Use of iterative reconstruction technique. COMPARISON: 03/30/2020. FINDINGS: Evaluation of the lower thorax demonstrates minimal posterior dependent and basilar atelect asis. The heart is normal in size. No hepatic lesion is seen. The gallbladder, pancreas, spleen and r ight adrenal gland are unremarkable. There is mild left adrenal gland thickening without a discrete n odule. There is no hydronephrosis or nephrolithiasis. There is no appendicitis. There is no bowel obstruction. The urinary bladder is unremarkable. There a re a few small prostate calcifications. The aorta is normal in caliber. There is no lymphadenopathy. There is a tiny fat-containing right inguinal hernia. There is no acute or suspicious osseous finding . IMPRESSION: No acute abdominal or pelvic finding. Electronically signed by: Barbara Ochoa MD (08/28/2021 12:09 PM) [id number]
[2021-08-28] MEDS ORDERED: ONDA4TAB12 PO (12:18)
--- NOTE | 2021-08-28 23:27 | EKG ---
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
== END 2021-08-28 12:45 | disposition left against medical advice (07) ==
LOC: ER 09:37
DX: R07.89 Other chest pain (principal); R10.13 Epigastric pain; R06.02 Shortness of breath; F17.200 Nicotine dependence, unspecified, uncomplicated; Z87.442 Personal history of urinary calculi
CPT/HCPCS: 36415; 71045; 74176; 80053; 84484; 85025; 85379; 93005; 96361; 96374; 96375; 96376; 99285; J2270; J2405; J7030

== ENCOUNTER 2021-09-01 09:55 | Emergency (ER) | payer SELFPAY ==
[~2021-09-01] VITALS: Ht 175.3 cm; Wt 74.8 kg
[2021-09-01] MEDS ORDERED: LIDO:MAALOX 1:1 20 ML SINGLE DOSE. PO ONE (11:00)
[2021-09-01] MEDS ORDERED: DICYCLOMINE 20 MG/2 ML VIAL. IM ONE ×2 (11:00→11:09)
[2021-09-01] MEDS ORDERED: IV NORMAL SALINE 1,000ML 1,000 ML IV SCH (11:00)
[2021-09-01] MEDS ORDERED: KETOROLAC 15 MG/ML VIAL. IVP ONE (11:00)
--- NOTE | 2021-09-01 11:03 | PHYS DOC ---
Past History Past Medical History: Kidney Stones Past Surgical History: No Surgical History Additional Past Surgical Histo: hernia repair. Alcohol Use: None Drug Use: None Adult General Chief Complaint Chief Complaint: CHEST WALL PAIN HPI HPI Patient is a 35 year old male who presents with complaint of upper abdominal pain. Patient states that his symptoms started upon awakening this morning. The patient states he had similar symptoms 4 days ago. Was seen in the emergency department at that time and underwent both cardiac work-up as well as CT of the abdomen and pelvis. The patient's emergency work-up showed no acute findings to explain his symptoms. Was recommended to follow-up with outpatient cardiology services for further evaluation to rule out other potential underlying cardiac abnormalities. Patient states that his symptoms generally come on at rest and do not affect him during exertion. The patient states that symptoms came on with more intensity this morning upon awakening. Describes the pain as a cramping sharp pain in his epigastric area. Denies radiation of pain or any laterality of pain symptoms. States that he initially had nausea but denies any vomiting, fever, diarrhea, shortness of breath, or chest pain currently. Review of Systems Review of Systems Constitutional: Denies fever or chills [] Eyes: Denies change in visual acuity, redness, or eye pain [] HENT: Denies nasal congestion or sore throat [] Respiratory: Denies cough or shortness of breath [] Cardiovascular: Denies chest pain or edema [] GI: Abdominal pain, nausea, denies vomiting, bloody stools or diarrhea [] : Denies dysuria or hematuria [] Musculoskeletal: Denies back pain or joint pain [] Integument: Denies rash or skin lesions [] Neurologic: Denies headache, focal weakness or sensory changes [] All other systems were reviewed and found to be within normal limits, except as documented in this note. Allergies Allergies Allergies Coded Allergies Type Severity Reaction Last Updated Verified peanut Allergy Unknown 09/01/21 Yes Physical Exam Physical Exam Constitutional: Well developed, well nourished, no acute distress, non-toxic appearance. [] HENT: Normocephalic, atraumatic, bilateral external ears normal, oropharynx moist, no oral exudates, nose normal. [] Eyes: PERRLA, EOMI, conjunctiva normal, no discharge. [] Neck: Normal range of motion, no tenderness, supple, no stridor. [] Cardiovascular:Heart rate regular rhythm, no murmur [] Lungs & Thorax: Bilateral breath sounds clear to auscultation [] Abdomen: Bowel sounds normal, soft, no tenderness, no masses, no pulsatile masses. [] Skin: Warm, dry, no erythema, no rash. [] Back: No tenderness, no CVA tenderness. [] Extremities: No tenderness, no cyanosis, no clubbing, ROM intact, no edema. [] Neurologic: Alert and oriented X 3, normal motor function, normal sensory function, no focal deficits noted. [] Psychologic: Affect normal, judgement normal, mood normal. [] Current Patient Data Vital Signs Vital Signs Date Time Temp Pulse Resp B/P (MAP) Pulse Ox O2 Delivery O2 Flow Rate FiO2 09/01/21 10:03 98.2 73 20 147/87 (107) 98 Room Air Lab Results Laboratory Tests Test 09/01/21 10:57 White Blood Count 10.6 x10^3/uL Red Blood Count 5.42 x10^6/uL Hemoglobin 15.8 g/dL Hematocrit 46.1 % Mean Corpuscular Volume 85 fL Mean Corpuscular Hemoglobin 29 pg Mean Corpuscular Hemoglobin Concent 34 g/dL Red Cell Distribution Width 13.0 % Platelet Count 233 x10^3/uL Neutrophils (%) (Auto) 78 % Lymphocytes (%) (Auto) 17 % Monocytes (%) (Auto) 5 % Eosinophils (%) (Auto) 1 % Basophils (%) (Auto) 0 % Neutrophils # (Auto) 8.2 x10^3uL Lymphocytes # (Auto) 1.8 x10^3/uL Monocytes # (Auto) 0.5 x10^3/uL Eosinophils # (Auto) 0.1 x10^3/uL Basophils # (Auto) 0.0 x10^3/uL Sodium Level 139 mmol/L Potassium Level 4.1 mmol/L Chloride Level 102 mmol/L Carbon Dioxide Level 27 mmol/L Anion Gap 10 Blood Urea Nitrogen 13 mg/dL Creatinine 1.0 mg/dL Estimated GFR (Cockcroft-Gault) 85.0 BUN/Creatinine Ratio 13 Glucose Level 104 mg/dL Calcium Level 9.4 mg/dL Magnesium Level 2.1 mg/dL Total Bilirubin 0.3 mg/dL Aspartate Amino Transf (AST/SGOT) 13 U/L Alanine Aminotransferase (ALT/SGPT) 25 U/L Alkaline Phosphatase 81 U/L Troponin I High Sensitivity 9 ng/L Total Protein 6.7 g/dL Albumin 3.8 g/dL Albumin/Globulin Ratio 1.3 Lipase 77 U/L Current Medications Medications (Trade) Dose Ordered Sig/Sasha Route PRN Reason Start Time Stop Time Status Last Admin Dose Admin Sodium Chloride 1,000 ml @ 1,000 mls/hr Q1H IV 09/01/21 11:00 09/01/21 12:00 DC 09/01/21 11:15 Ketorolac Tromethamine (Toradol 15mg Vial) 15 mg 1X ONCE IVP 09/01/21 11:00 09/01/21 11:10 DC 09/01/21 11:13 Dicyclomine HCl (Bentyl) 20 mg 1X ONCE IM 09/01/21 11:00 09/01/21 11:10 DC 09/01/21 11:13 Multi-Ingredient Mouthwash/Gargle (Gi Cocktail) 20 ml 1X ONCE PO 09/01/21 11:00 09/01/21 11:10 DC 09/01/21 11:14 Multi-Ingredient Mouthwash/Gargle (Gi Cocktail) 20 ml STK-MED ONCE .ROUTE 09/01/21 11:09 09/01/21 11:10 DC Dicyclomine HCl (Bentyl) 20 mg STK-MED ONCE IM 09/01/21 11:09 09/01/21 11:10 DC Ketorolac Tromethamine (Toradol 15mg Vial) 15 mg STK-MED ONCE .ROUTE 09/01/21 11:10 09/01/21 11:10 DC EKG EKG Interpreted by me: Heart rate 65, sinus rhythm, normal intervals, normal axis, no acute ST/T wave abnormalities present [] Radiology/Procedures Radiology/[place] [address] IMAGING REPORT Signed PATIENT: ROGELIO HAMILTON ACCOUNT: [id number] : 1985 LOCATION: ER AGE: 35 SEX: M EXAM STATUS: REG ER ORD. PHYSICIAN: JAIRO LEIVA MD REASON: epigastric pain PROCEDURE: PORTABLE CHEST 1V EXAM: Chest, single view. HISTORY: Epigastric pain. COMPARISON: None. FINDINGS: A frontal view of the chest is obtained. There is no infiltrate, pleural effusion or pneumothorax. The heart is normal in size. IMPRESSION: No acute pulmonary finding. Electronically signed by: Barbara Callejas MD (09/01/2021 11:38 AM) [id number] DICTATED AND SIGNED BY: BARBARA CALLEJAS MD DATE: 09/01/21 1138 CC: JAIRO LEIVA MD; PCP,NO ~ [] Heart Score C/O Chest Pain: No Risk Factors: Risk Factors: DM, Current or recent (<one month) smoker, HTN, HLP, family history of CAD, obesity. Risk Scores: Risk Factors: DM, Current or recent (<one month) smoker, HTN, HLP, family history of CAD, obesity. Course & Med Decision Making Course & Med Decision Making Pertinent Labs and Imaging studies reviewed. (See chart for details) Lab work was reviewed and appear stable. The patient was treated with IV Toradol, IM Bentyl, and oral GI cocktail. Patient notes improvement in symptoms after treatment. I have very low suspicion for active cardiac disease in this patient. Patient symptoms may be secondary to intra gastrointestinal origin. Patient provided with contact information for Dr. Santos of gastroenterology. Advised to follow through with outpatient cardiology evaluation as recommended from previous visit. If evaluation shows normal findings, I have recommended that the patient consider contacting gastroenterology services to set up outpatient evaluation to evaluate for other possible origins of epigastric pain. Prescribed Bentyl and Pepcid for outpatient treatment. Recommend return to the emergency department for any worsening symptoms. Patient voiced understan racheal and in agreement with treatment plan. [] Dragon Disclaimer Dragon Disclaimer This electronic medical record was generated, in whole or in part, using a voice recognition dictation system. Departure Departure: Impression: Primary Impression: Epigastric pain Disposition: HOME / SELF CARE / HOMELESS Condition: IMPROVED Referrals: PCP,LIDIA (PCP) CONNIE SANTOS MD Patient Instructions: Abdominal Pain Additional Instructions: Be sure to follow-up with cardiology as recommended at your previous visit. You have also been provided with contact information for Dr. Santos of gastroenterology. It is recommended that you contact his office after cardiac evaluation has been completed if you are still having active or recurrent symptoms. Return to the emergency department for any worsening symptoms. Scripts Famotidine (PEPCID) 20 Mg Tablet 1 TAB PO BID, #30 TAB 0 Refills Prov: JAIRO LEIVA MD 09/01/21 Dicyclomine Hcl (DICYCLOMINE HCL) 20 Mg Tablet 1 TAB PO QID PRN for ABDOMINAL CRAMPS, #30 TAB Prov: JAIRO LEIVA MD 09/01/21 JAIRO LEIVA MD September 01, 2021 11:03
[2021-09-01] MEDS ORDERED: LIDO:MAALOX 1:1 20 ML SINGLE DOSE. ONE (11:09)
[2021-09-01] MEDS ORDERED: KETOROLAC 15 MG/ML VIAL. ONE (11:10)
[2021-09-01 11:30] LABS: BASO % 0 % (0-3); EOS # 0.1 x10^3/uL (0.0-0.7); EOS % 1 % (0-3); HEMATOCRIT 46.1 % (39.0-53.0); HEMOGLOBIN 15.8 g/dL (13.0-17.5); LYMPH # 1.8 x10^3/uL (1.0-4.8); LYMPH % 17 % (24-48); MEAN CORPUSCULAR HEMOGLOBIN 29 pg (25-35); MEAN CORPUSCULAR HGB CONC 34 g/dL (31-37); MEAN CORPUSCULAR VOLUME 85 fL (79-100); MONO # 0.5 x10^3/uL (0.0-1.1); MONO % 5 % (0-9); NEUT # 8.2 x10^3uL (1.8-7.7); NEUT % 78 % (31-73); PLATELET COUNT 233 x10^3/uL (140-400); RED BLOOD COUNT 5.42 x10^6/uL (4.30-5.70); WHITE BLOOD COUNT 10.6 x10^3/uL (4.0-11.0)
--- NOTE | 2021-09-01 11:41 | RAD ---
EXAM: Chest, single view. HISTORY: Epigastric pain. COMPARISON: None. FINDINGS: A frontal view of the chest is obtained. There is no infiltrate, pleural effusion or pneumo thorax. The heart is normal in size. IMPRESSION: No acute pulmonary finding. Electronically signed by: Barbara Ochoa MD (09/01/2021 11:38 AM) [id number]
[2021-09-01 12:00] LABS: CALCIUM 9.4 mg/dL (8.5-10.1)
[2021-09-01 12:01] LABS: POTASSIUM 4.1 mmol/L (3.5-5.1)
[2021-09-01 12:04] LABS: ALBUMIN 3.8 g/dL (3.4-5.0); ALBUMIN/GLOBULIN RATIO 1.3 (1.0-1.7); MAGNESIUM 2.1 mg/dL (1.8-2.4); TOTAL BILIRUBIN 0.3 mg/dL (0.2-1.0); TOTAL PROTEIN 6.7 g/dL (6.4-8.2)
[2021-09-01 12:30] VITALS: BP 142/76
[2021-09-01] MEDS ORDERED: FAMO-63 PO (12:32)
[2021-09-01] MEDS ORDERED: DICY20TA PO (12:32)
== END 2021-09-01 12:40 | disposition home or self-care (01) ==
LOC: ER 09:55
DX: R10.13 Epigastric pain (principal); R11.0 Nausea; Z87.442 Personal history of urinary calculi; Z91.010 Allergy to peanuts
CPT/HCPCS: 36415; 71045; 80053; 83690; 83735; 84484; 85025; 93005; 96361; 96372; 96374; 99285; J0500; J1885; J7030